=== PATIENT | male | born 1970 | race Caucasian/White ===

== ENCOUNTER 2020-07-27 08:41 | Emergency (ER) | payer OTHER ==
[~2020-07-27] VITALS: Ht 198.1 cm; Wt 86.2 kg
[2020-07-27] MEDS ORDERED: AUGMENTIN 500-1 EACH PO (08:51)
[2020-07-27] MEDS ORDERED: LAMOTRIGINE250 MG PO (08:52)
[2020-07-27] MEDS ORDERED: PRILOSEC OTC20 MG PO (08:52)
[2020-07-27] MEDS ORDERED: KEFLEX500 M1 PO (09:20)
[2020-07-27] MEDS ORDERED: BACTRIM DS TAB1 EACH PO (09:20)
[2020-07-27 09:43] VITALS: BP 139/91
== END 2020-07-27 09:44 | disposition home or self-care (01) ==
LOC: M.ERS 08:41
DX: L03.011 Cellulitis of right finger (principal); Z79.2 Long term (current) use of antibiotics; Z79.899 Other long term (current) drug therapy; Z88.5 Allergy status to narcotic agent